=== PATIENT | female | born 1965 | race Caucasian/White ===

== ENCOUNTER → 2017-03-28 | Outpatient (CLI) | payer OTHER | END | disposition home or self-care (01) | LOC: C.PAPS 07:52 | PROVIDERS: ATTEND Physician Assistant Medical | DX: Z12.4 Encounter for screening for malignant neoplasm of cervix (principal) ==

== ENCOUNTER → 2017-12-28 | Outpatient (CLI) | payer OTHER ==
[~2017-12-28] MED LIST: GADAVIST IV PRN
--- NOTE | 2017-12-28 16:59 | DIAGNOSTIC IMAGING REPORT ---
MR ANGIOGRAM OF THE BRAIN CLINICAL HISTORY: Vertigo. COMPARISON STUDY: MRI of the brain dated 08/08/2014. TECHNIQUE: 3-D [id number] MR angiography of the intracranial circulation is performed. 3-D tumble views are created and assessed. IV contrast was not administered for this examination. FINDINGS: There is origin of the right posterior cerebral artery and a large left posterior communicating artery. The internal carotid arteries are widely patent bilaterally, as are the anterior and middle cerebral arteries. The vertebrobasilar system and posterior cerebral arteries are widely patent. The vertebral arteries are codominant. The basilar is diminutive. There is no aneurysm, high-grade stenosis, or focal vessel cutoff seen throughout the intracranial circulation. The brain parenchyma is normal as visualized. IMPRESSION: Unremarkable MR angiogram of the brain. Electronically signed by: Kuldeep Carter M.D. 12/28/2017 4:58 PM Dictated Date/Time: 12/28/2017 4:55 PM
--- NOTE | 2017-12-28 17:01 | DIAGNOSTIC IMAGING REPORT ---
NECK MRA HISTORY: VERTIGO,SMALL FIBRE NEUROPATHY TECHNIQUE: [id number] and gadolinium-enhanced MRA of the neck was performed both before and after the intravenous administration of contrast. All measurements were calculated based on NASCET criteria. COMPARISON STUDY: None. FINDINGS: The aortic arch and proximal great vessels are widely patent. No significant stenosis, occlusion, or dissection within the common carotid or left internal carotid arteries. Mild smooth focal narrowing at the origin of the right internal carotid artery of approximately 30%. There are vertebral arteries are suboptimally assessed due to motion artifact but appear to be grossly patent. IMPRESSION: 1. Approximate 30% focal stenosis at the origin of the right internal carotid artery. 2. Otherwise, no significant stenosis, occlusion, or dissection within the remaining carotid or vertebral arteries. Electronically signed by: Vladimir Mcdermott M.D. 12/28/2017 5:00 PM Dictated Date/Time: 12/28/2017 4:52 PM
--- NOTE | 2017-12-28 18:24 | DIAGNOSTIC IMAGING REPORT ---
MRI OF THE BRAIN COMBO INTERNAL AUDITORY CANAL PROTOCOL CLINICAL HISTORY: Dizziness and vertigo. Nausea. Tinnitus. COMPARISON STUDY: MRI of the brain dated 08/08/2014. TECHNIQUE: MRI of the brain was performed utilizing various T1 and T2-weighted sequences in the axial, sagittal, and coronal planes. Contrast-enhanced sequences were acquired following the administration of 9 cc of Gadavist. Additional high-resolution imaging was performed through the skull base both pre and post contrast to assess the internal auditory canals. FINDINGS: Brain parenchyma: The brain parenchyma is normal in appearance. There is no hemorrhage or mass effect. There is no restricted diffusion to suggest acute ischemia. No enhancing mass lesion is identified on the postcontrast images. Martin-white matter differentiation is preserved. No extra-axial fluid collection is seen. The cerebellar tonsils are normal in configuration. Ventricles, sulci, and cisterns: Normal in configuration. Internal auditory canals: There is no enhancing mass lesion identified in the cerebellopontine angle bilaterally. No mass or abnormal enhancement is seen along the course of the internal auditory canals. The middle ear structures are normal as visualized. Pituitary and sella: Unremarkable. Intracranial vasculature: Normal flow voids are maintained at the skull base. Orbits: The bony orbits are grossly intact. Orbital contents are normal in appearance. Sinuses and mastoids: Clear. Calvarium: Unremarkable. Cervical cord: Partially visualized cervical spinal cord is normal in morphology and signal intensity. IMPRESSION: 1. No acute intracranial abnormality. 2. Unremarkable MRI assessment of the internal auditory canals. Electronically signed by: Kuldeep Carter M.D. 12/28/2017 6:22 PM Dictated Date/Time: 12/28/2017 6:17 PM
== END | disposition home or self-care (01) ==
LOC: C.MRI 15:31
PROVIDERS: ATTEND Psychiatry & Neurology Neurology
DX: H81.49 Vertigo of central origin, unspecified ear (principal); G62.9 Polyneuropathy, unspecified; I65.21 Occlusion and stenosis of right carotid artery

== ENCOUNTER → 2018-03-05 | Outpatient (CLI) | payer OTHER | END | disposition home or self-care (01) | LOC: C.LABBC 14:52 | PROVIDERS: ATTEND Physician Assistant Medical | DX: L30.9 Dermatitis, unspecified (principal) ==

== ENCOUNTER → 2018-04-05 | Outpatient (CLI) | payer OTHER | END | disposition home or self-care (01) | LOC: C.LABBC 10:59 | PROVIDERS: ATTEND Physician Assistant Medical | DX: Z00.00 Encounter for general adult medical examination without abnormal findings (principal) ==